=== PATIENT | female | born 1965 | race African-American/Black ===

== ENCOUNTER 2021-09-15 10:30 | Emergency (ER) | payer BC, SELFPAY | END 2021-09-15 12:57 | disposition home or self-care (01) | LOC: ERS 10:30 | DX: T83.031A Leakage of indwelling urethral catheter, initial encounter (principal); E11.9 Type 2 diabetes mellitus without complications; I10 Essential (primary) hypertension; E78.5 Hyperlipidemia, unspecified; F17.210 Nicotine dependence, cigarettes, uncomplicated | CPT/HCPCS: 51702 ==

== ENCOUNTER 2021-10-20 09:30 | Emergency (ER) | payer BC ==
[2021-10-20 11:58] LABS: Bacteria/HPF 4+ HPF (None Seen); Bilirubin Negative (Negative); Blood, Urine 3+ (Negative); Clarity Extra Turbid (Clear); Glucose, Urine (Dipstick) Normal (Negative); Ketone, Urine Negative (Negative); Leukocyte 500 Leu/uL (Negative); Nitrite 2+ (Negative); Protein, Urine (Dipstick) 100 mg/dL (Neg-Trace); Specific Gravity, Urine 1.024 (1.002-1.036)
[2021-10-20 12:06] LABS: WBC/HPF 21-50 HPF (0-3)
== END 2021-10-20 12:48 | disposition home or self-care (01) ==
LOC: ERS 09:30
DX: N30.00 Acute cystitis without hematuria (principal); E11.9 Type 2 diabetes mellitus without complications; E78.5 Hyperlipidemia, unspecified; I10 Essential (primary) hypertension; F17.210 Nicotine dependence, cigarettes, uncomplicated; Z46.6 Encounter for fitting and adjustment of urinary device; Z79.4 Long term (current) use of insulin; Z79.899 Other long term (current) drug therapy
CPT/HCPCS: 51702; 81003; 81015; 87077; 87086; 87186; 94760